=== PATIENT | female | born 1970 | race African-American/Black ===

== ENCOUNTER 2021-08-29 08:19 | Emergency (ER) | payer BC, OTHER ==
[2021-08-29 08:28] VITALS: BP 141/80; PULSE 83; TEMP 97.6; BMI 27.5
[2021-08-29] MEDS ORDERED: KETOROLAC TROMETHAMINE 30 MG/1 ML VIAL IM ONE (08:55)
[2021-08-29] MEDS ORDERED: diazePAM 5 MG TABLET PO ONE (08:56)
[2021-08-29] MEDS ORDERED: LIDOCAINE 5% TOPICAL PATCH TP ONE (08:56)
[2021-08-29] MEDS ORDERED: KETOROLAC TROMETHAMINE 30 MG/1 ML VIAL ONE (09:01)
[2021-08-29] MEDS ORDERED: diazePAM 5 MG TABLET ONE (09:01)
[2021-08-29] MEDS ORDERED: LIDOCAINE 5% TOPICAL PATCH ONE (09:01)
[2021-08-29] MEDS ORDERED: LIDOCAINE PATCH REMOVAL MC SCH (22:00)
== END 2021-08-29 09:00 | disposition home or self-care (01) ==
LOC: JERFT 08:19 → JER 08:19 → JERFT 09:00
PROC: 3E0233Z Introduction of Anti-inflammatory into Muscle, Percutaneous Approach (ICD-10-PCS; principal; 2021-08-29)
DX: M54.50 Low back pain, unspecified (principal); V89.2XXA Person injured in unspecified motor-vehicle accident, traffic, initial encounter; Y92.9 Unspecified place or not applicable
CPT/HCPCS: 99283-25